=== PATIENT | male | born 1955 | race Hispanic/Latino ===

== ENCOUNTER → 2019-06-15 | Outpatient (CLI) | payer MEDICARE ==
--- NOTE | 2019-06-15 09:49 | Diagnostic Imaging Report ---
History: Evaluate for stroke, right-sided weakness. Comparison studies: None Technique: Sagittal and axial T2 FS, axial DWI, axial T2*GRE, axial T1 FLAIR and axial coronal T2 FLAIR. Intravenous contrast: None Findings: Scalp: Normal in signal. No masses. Bone marrow: Normal in signal intensity. Brain sulci: Appropriate for age. Ventricles: Normal in size. No hydrocephalus. Extra axial spaces: No mass, no fluid collection. Parenchyma: Small posterior medial temporal periventricular focus of restricted diffusion and T2 FLAIR hyperintensity posterior to the lateral geniculate body. Additionally, there is cystic increased T2 FLAIR signal in the adjacent left posterior cerebral or choroidal artery. No other abnormal foci of restricted diffusion. A few scattered T2 FLAIR hyperintense foci in the supratentorial white matter are nonspecific but are most compatible with chronic microvascular ischemic changes. Suprasellar region: No abnormalities. Craniocervical junction: Patent foramen magnum. No Chiari malformation. Vessels: Abnormal signal within a left posterior cerebral artery as described above. The flow-voids of the remaining major intracranial arteries and dural venous sinuses are maintained. Normal flow-voids in the arteries and sinuses. Incidental findings: Intraocular lens replacements. Nonspecific T2 hyperintense inflammatory changes or effusion in the left mastoids. IMPRESSION: 1. Small nonhemorrhage left posterior medial temporal periventricular insult posterior to the lateral geniculate body with abnormal signal in the adjacent left BUTTER MAKER or choroidal artery concerning for vessel occlusion/thrombus or flow-limiting stenosis. Recommend CTA or MRA to further evaluate. 2. Mild chronic microvascular ischemic changes. Findings discussed with BARBARA Nagy at 9:33 AM on 06/15/2019. Signed by: Dr. Idris Ruiz M.D. on 06/15/2019 9:45 AM
== END ==
LOC: MRI 07:11
PROVIDERS: ATTEND Internal Medicine Interventional Cardiology
DX: G81.91 Hemiplegia, unspecified affecting right dominant side (principal)
CPT/HCPCS: 70551

== ENCOUNTER → 2019-07-24 | Day surgery (SDC) | payer MEDICARE, OTHER ==
[2019-07-20 11:51] LABS: BASOPHILS # (AUTO) 0.1 (0.0-0.1); BASOPHILS % 0.7 % (0.0-1.0); EOSINOPHILS # (AUTO) 0.2 (0.0-0.4); HEMATOCRIT 33.7 % (38.2-49.6); HEMOGLOBIN 11.2 g/dL (14.0-18.0); LYMPHOCYTES # (AUTO) 1.5 (1.0-3.2); LYMPHOCYTES % 21.1 % (18.0-39.1); MEAN CORPUSCULAR HEMOGLOBIN 29.6 pg (28-32); MEAN CORPUSCULAR HGB CONC 33.2 g/dL (31-35); MEAN CORPUSCULAR VOLUME 89.2 fL (81-99); MONOCYTES # (AUTO) 0.5 (0.2-0.8); MONOCYTES % 7.2 % (4.4-11.3); NEUTROPHILS # (AUTO) 4.7 (2.1-6.9); NEUTROPHILS % 67.7 % (38.7-80.0); PLATELET COUNT 213 x10e3/uL (140-360); RED BLOOD COUNT 3.78 x10e6/uL (4.3-5.7); RED CELL DISTRIBUTION WIDTH 13.7 % (11.7-14.4)
[2019-07-20 12:13] LABS: ALBUMIN 3.2 g/dL (3.5-5.0); ALBUMIN/GLOBULIN RATIO 0.9 (0.8-2.0); CALCIUM 8.6 mg/dL (8.4-10.2); CREATININE, SERUM 1.48 mg/dL (0.72-1.25)
[~2019-07-24] VITALS: Ht 167.6 cm; Wt 81.6 kg
[2019-07-24] VITALS (7 sets, daily range): BP systolic 122–160; BP diastolic 68–88
[~2019-07-24] MED LIST: ALPRAZOLAM 0.5 MG TAB ONE; CLOPIDOGREL75 MG PO; DIPHENHYDRAMINE HCL 25 MG CAP ONE; FENTANYL CITRATE/PF 100MCG/2 ML INJ ONE; GABAPENTIN100 MG PO; HEPARIN SOD/SOD CHLORIDE 2,000 ML ONE; IOPAMIDOL 370 MG/ML 200 ML INFUS..BTL INJ ONE; LIDOCAINE HCL 2% LOCAL 20 ML VIAL ONE; LIPITOR20 MG PO; LOSARTAN POTASS25 MG PO; METFORMIN HCL500 MG PO; MIDAZOLAM HCL 2 MG/2 ML VIAL ONE; SODIUM CHLORIDE 0.9% 1000ML 1,000 ML ONE; VERAPAMIL HCL 2.5 MG/ML 2 ML VIAL ONE
--- NOTE | 2019-07-24 10:45 | NUR ---
Preop med xanax 0.5 / benadryl 50mg given po by ALOK ISRAEL
--- NOTE | 2019-07-24 11:45 | NUR ---
1145 Received pt to room #9,bedside report received from LINDY Alvarado. Alert oriented and appropriate, PERRLA, respirations even and unlabored to room air. Pulses x4 extremities equal and strong. Pedal pulses PT/DP x4 and marked. Cap fill brisk < 3 sec. Skin warm and dry integrity appears D/ IV 20g to left forearm presents healthy w/o s/s of infiltration or complaint. Abdomen soft and supple. pt offered toileting, denies need to urinate or defecate. No personal affects with patient. Family at bedside.Pt and family verbalizes understanding of POC. Pre- Currently w/o complaint of pain or need. TR band down at 1230 dc home at 1pm -josephine/lindy
--- NOTE | 2019-07-24 12:30 | NUR ---
1230 rt RADIAL Compression removal: Initial Cuff volume 10 cc 1230 cc Removed No hematoma/bleeding noted with normal neurovascular function. 1245 cc Removed No hematoma/ bleeding noted with normal neurovascular function. 1300 cc Removed No hematoma/bleeding noted with normal neurovascular function. Air removal completed. Stasis achieved sterile 2x2,Tegaderm, Coban dressing No hematoma, bleeding noted with normal neurovascular function. Wrist splint in place. Pt instructed on POC. Ds/Rn
--- NOTE | 2019-07-24 12:59 | Operative Report ---
DATE OF PROCEDURE: 07/24/2019 SURGEON: Billy Osorio MD INDICATIONS: 1. Coronary artery disease, unstable angina. 2. Abnormal exercise SPECT study. COMPLICATIONS: None. BLOOD LOSS: Minimal. RECOMMENDATIONS: Aggressive medical therapy. PROCEDURES PERFORMED: 1. Ultrasound-guided access in the right radial artery with sheath placement and image storage. 2. Conscious sedation administration, hemodynamic and neurological monitoring and recovery by hadoop application developer RN, supervision by MD, 35 minutes. 3. Left heart catheterization, selective coronary angiography. 4. Deployment of right wrist TR band. DESCRIPTION OF PROCEDURE: Access was obtained in the right radial artery. Using ultrasound guidance, a 5-Spanish sheath was placed. Coronary angiography demonstrated calcified left coronary system with very small vessels. Left main, 50% mid stenosis, diffuse circumflex. Left anterior descending artery, 30% to 50% stenosis, 2 mm vessel. Distal/apical left anterior descending artery, 70% to 90% stenosis, 1.5 mm in size (source of apical ischemia). Right coronary artery was dominant vessel, 3 mm in size, 50% mid stenosis. Right posterior descending artery, 80% stenosis, 1.5 mm vessel. LV end-diastolic pressure of 10. No gradient across the aortic valve on pullback. No intervention deemed necessary. Right wrist TR band applied. The patient was discharged home the same day. Billy Osorio MD [facility] /[id number]
--- NOTE | 2019-07-24 13:00 | NUR ---
1300p Pt meets DC criteria. Rt wrist assessed for s/s of complication and presence of hematoma. Salgado warm, dry, no discolor, and pulses present. IV removed from left wrist. Distal tip appears intact. VS WNL. Pt denies pain, sob, or need at this time. Family at bedside. Review of discharge paperwork and follow up instructions. verbalized understanding. Pt to wheelchair and transported to front of hospital. Transferred to private vehicle under own strength w/o incident with DC paperwork in hand. - ds/rn
== END | disposition home or self-care (01) ==
LOC: CATH LAB 09:39
PROVIDERS: ATTEND Internal Medicine Interventional Cardiology
DX: I25.110 Atherosclerotic heart disease of native coronary artery with unstable angina pectoris (principal); I63.312 Cerebral infarction due to thrombosis of left middle cerebral artery; R93.1 Abnormal findings on diagnostic imaging of heart and coronary circulation; E11.69 Type 2 diabetes mellitus with other specified complication; Z01.812 Encounter for preprocedural laboratory examination; Z11.59 Encounter for screening for other viral diseases; Z79.02 Long term (current) use of antithrombotics/antiplatelets; Z79.84 Long term (current) use of oral hypoglycemic drugs
CPT/HCPCS: 36415; 76937; 80053; 85025; 87635; 93458; C1769; C1887; J2001; J2250; J3010; J7030; Q9967; 99152